=== PATIENT | male | born 1955 | race Caucasian/White ===

== ENCOUNTER 2017-06-25 13:58 | Observation (INO) | payer BC ==
--- NOTE | 2017-06-25 15:48 | ED ---
General Adult HPI - General Chief complaint: Recheck/Abnormal Lab/Rx Stated complaint: kidney problems-sent by Time Seen by Provider: 06/25/17 15:33 Source: patient, RN notes reviewed Mode of arrival: ambulatory Limitations: no limitations - History of Present Illness Initial comments: Patient 62-year-old male significant past medical history for hypertension, diabetes, presenting to the emergency room today with a chief complaint of increased leg swelling over the last 3 weeks. Patient does not that is been following up with family physician. He states that he had blood drawn last week and most recently just the other day and he was told that his kidney function was elevated. He states was advised come here to the emergency room. Patient also admits that over the last few weeks she's noticed that his had a difficult time was bowel movements. He states feels more full more distended. Patient states he is passing gas. Patient does admit to a weight gain 10 pounds over the last 3 weeks. Denies any complaints symptoms. Patient denies any recent fever, chills, shortness of breath, chest pain, back pain, nausea or vomiting, numbness or tingling, dysuria or hematuria, constipation or diarrhea, headaches or visual changes, or any other complaints. - Related Data Home Medications Medication Instructions Recorded Confirmed Bisacodyl [Dulcolax] 5 mg PO DAILY PRN 06/25/17 06/25/17 Exenatide Microspheres [Bydureon 2 mg SQ WE 06/25/17 06/25/17 Pen] Glimepiride [Amaryl] 1 mg PO DAILY 06/25/17 06/25/17 Levothyroxine Sodium [Synthroid] 25 mcg PO DAILY 06/25/17 06/25/17 Lisinopril [Zestril] 5 mg PO DAILY 06/25/17 06/25/17 Allergies Allergy/AdvReac Type Severity Reaction Status Date / Time No Known Allergies Allergy Verified 06/25/17 16:22 Review of Systems ROS Statement: Those systems with pertinent positive or pertinent negative responses have been documented in the HPI. ROS Other: All systems not noted in ROS Statement are negative. Past Medical History Past Medical History: Diabetes Mellitus, Hypertension History of Any Multi-Drug Resistant Organisms: None Reported Past Surgical History: No Surgical Hx Reported Past Psychological History: No Psychological Hx Reported Smoking Status: Never smoker Past Alcohol Use History: Occasional Past Drug Use History: None Reported General Exam - General Exam Comments Initial Comments: General: The patient is awake and alert, in no distress, and does not appear acutely ill. Eye: Pupils are equal, round and reactive to light, extra-ocular movements are intact. No nystagmus. There is normal conjunctiva bilaterally. No signs of icterus. Ears, nose, mouth and throat: There are moist mucous membranes and no oral lesions. Neck: The neck is supple, there is no tenderness or JVD. Cardiovascular: There is a regular rate and rhythm. No murmur, rub or gallop is appreciated. Respiratory: Lungs are clear to auscultation, respirations are non-labored, breath sounds are equal. No wheezes, stridor, rales, or rhonchi. Gastrointestinal: Patient's abdomen maladies. Firm on palpation lower abdomen midline. No rebound tenderness. No guarding. Mild tenderness left lower quadrant. Musculoskeletal: Normal ROM, no tenderness. Strength 5/5. Sensation intact. Pulses equal bilaterally 2+. No pitting edema. Neurological: A&O x 3. CN II-XII intact, There are no obvious motor or sensory deficits. Coordination appears grossly intact. Speech is normal. Skin: Skin is warm and dry and no rashes or lesions are noted. Psychiatric: Cooperative, appropriate mood & affect, normal judgment. Limitations: no limitations Course Vital Signs 06/25/17 06/25/17 06/25/17 14:38 16:07 16:24 Temperature 98.6 F Pulse Rate 68 66 62 Respiratory 20 16 18 Rate Blood Pressure 199/95 195/90 182/90 O2 Sat by Pulse 98 99 Oximetry 06/25/17 16:50 Temperature Pulse Rate 80 Respiratory 16 Rate Blood Pressure 165/91 O2 Sat by Pulse 99 Oximetry Medical Decision Making - Medical Decision Making Patient reexamined at this time shows no signs of distress. Patient resting comfortably currently drinking water. Patient abdomen is soft on palpation. He does have some mild distention. Mild tenderness to the lower quadrants. Patient's x-rays show moderate amount stool no sign of obstruction. He is passing gas. Patient labs been reviewed does show elevation of BUN/creatinine. Creatinine 1.5. Patient started on normal saline here in the emergency room cc per hour. Patient will be admitted to the hospital for acute renal failure further evaluation. Case was discussed with admitting physician Dr. Aranda who will admit the patient with recommends ultrasound of abdomen and echocardiogram. - Lab Data Result diagrams: 06/25/17 16:08 06/25/17 16:08 Lab Results 06/25/17 06/25/17 06/25/17 Range/Units 16:08 16:08 16:08 WBC (3.8-10.6) k/uL RBC (4.30-5.90) m/uL Hgb (13.0-17.5) gm/dL Hct (39.0-53.0) % MCV (80.0-100.0) fL MCH (25.0-35.0) pg MCHC (31.0-37.0) g/dL RDW (11.5-15.5) % Plt Count (150-450) k/uL Neutrophils % % Lymphocytes % % Monocytes % % Eosinophils % % Basophils % % Neutrophils # (1.3-7.7) k/uL Lymphocytes # (1.0-4.8) k/uL Monocytes # (0-1.0) k/uL Eosinophils # (0-0.7) k/uL Basophils # (0-0.2) k/uL PT 9.8 (9.0-12.0) sec INR 1.0 (<1.2) APTT 25.1 (22.0-30.0) sec Sodium 142 (137-145) mmol/L Potassium 4.1 (3.5-5.1) mmol/L Chloride 109 H (98-107) mmol/L Carbon Dioxide 24 (22-30) mmol/L Anion Gap 9 mmol/L BUN 22 H (9-20) mg/dL Creatinine 1.52 H (0.66-1.25) mg/dL Est GFR (CKD-EPI)AfAm 56 (>60 ml/min/1.73 sqM) Est GFR (CKD-EPI)NonAf 48 (>60 ml/min/1.73 sqM) Glucose 113 H (74-99) mg/dL Calcium 9.3 (8.4-10.2) mg/dL Total Bilirubin 0.5 (0.2-1.3) mg/dL AST 21 (17-59) U/L ALT 32 (21-72) U/L Alkaline Phosphatase 86 (38-126) U/L NT-Pro-B Natriuret Pep 209 pg/mL Total Protein 6.6 (6.3-8.2) g/dL Albumin 3.9 (3.5-5.0) g/dL Amylase 57 (30-110) U/L Lipase 156 (23-300) U/L Urine Color Urine Appearance (Clear) Urine pH (5.0-8.0) Ur Specific [place] (1.001-1.035) Urine Protein (Negative) Urine Glucose (UA) (Negative) Urine Ketones (Negative) Urine Blood (Negative) Urine Nitrite (Negative) Urine Bilirubin (Negative) Urine Urobilinogen (<2.0) mg/dL Ur Leukocyte Esterase (Negative) 06/25/17 06/25/17 Range/Units 16:08 16:08 WBC 9.5 (3.8-10.6) k/uL RBC 4.24 L (4.30-5.90) m/uL Hgb 13.2 (13.0-17.5) gm/dL Hct 37.3 L (39.0-53.0) % MCV 88.0 (80.0-100.0) fL MCH 31.1 (25.0-35.0) pg MCHC 35.4 (31.0-37.0) g/dL RDW 13.2 (11.5-15.5) % Plt Count 228 (150-450) k/uL Neutrophils % 73 % Lymphocytes % 15 % Monocytes % 5 % Eosinophils % 6 % Basophils % 0 % Neutrophils # 6.9 (1.3-7.7) k/uL Lymphocytes # 1.4 (1.0-4.8) k/uL Monocytes # 0.5 (0-1.0) k/uL Eosinophils # 0.6 (0-0.7) k/uL Basophils # 0.0 (0-0.2) k/uL PT (9.0-12.0) sec INR (<1.2) APTT (22.0-30.0) sec Sodium (137-145) mmol/L Potassium (3.5-5.1) mmol/L Chloride (98-107) mmol/L Carbon Dioxide (22-30) mmol/L Anion Gap mmol/L BUN (9-20) mg/dL Creatinine (0.66-1.25) mg/dL Est GFR (CKD-EPI)AfAm (>60 ml/min/1.73 sqM) Est GFR (CKD-EPI)NonAf (>60 ml/min/1.73 sqM) Glucose (74-99) mg/dL Calcium (8.4-10.2) mg/dL Total Bilirubin (0.2-1.3) mg/dL AST (17-59) U/L ALT (21-72) U/L Alkaline Phosphatase (38-126) U/L NT-Pro-B Natriuret Pep pg/mL Total Protein (6.3-8.2) g/dL Albumin (3.5-5.0) g/dL Amylase (30-110) U/L Lipase (23-300) U/L Urine Color Colorless Urine Appearance Clear (Clear) Urine pH 6.5 (5.0-8.0) Ur Specific [place] 1.005 (1.001-1.035) Urine Protein Negative (Negative) Urine Glucose (UA) 3+ H (Negative) Urine Ketones Negative (Negative) Urine Blood Negative (Negative) Urine Nitrite Negative (Negative) Urine Bilirubin Negative (Negative) Urine Urobilinogen <2.0 (<2.0) mg/dL Ur Leukocyte Esterase Negative (Negative) Disposition Clinical Impression: Acute renal failure, Abdominal pain Disposition: ADMITTED IP TO THIS [facility] Condition: Stable Referrals: Madhu Porras MD [Primary Care Provider] - 1-2 days Time of Disposition: 16:49
[2017-06-25] MEDS ORDERED: hydrALAZINE HCL 20 MG/ML 1 ML VIAL IVP STA (16:14)
[2017-06-25 16:27] LABS: Basophils % (A) 0 %; Eosinophils # (A) 0.6 k/uL (0-0.7); Eosinophils % (A) 6 %; HCT 37.3 % (39.0-53.0); HGB 13.2 gm/dL (13.0-17.5); Lymphocytes # (A) 1.4 k/uL (1.0-4.8); Lymphocytes % (A) 15 %; MCH 31.1 pg (25.0-35.0); MCHC 35.4 g/dL (31.0-37.0); Mean Platelet Volume 7.6; Monocytes # (A) 0.5 k/uL (0-1.0); Monocytes % (A) 5 %; Neutrophils # (A) 6.9 k/uL (1.3-7.7); Neutrophils % (A) 73 %; Platelet Count 228 k/uL (150-450); RBC 4.24 m/uL (4.30-5.90); RDW 13.2 % (11.5-15.5); WBC 9.5 k/uL (3.8-10.6)
[2017-06-25 16:28] LABS: Appearance,Urine Clear (Clear); Bilirubin,Urine Negative (Negative); Blood,Urine Negative (Negative); Color,Urine Colorless; Glucose,Urine (UA) 3+ (Negative); Ketones,Urine Negative (Negative); Leukocyte Esterase,Urine Negative (Negative); Nitrite,Urine Negative (Negative); PH, Urine 6.5 (5.0-8.0); Protein,Urine Negative (Negative); Specific Gravity,Urine 1.005 (1.001-1.035); Urobilinogen,Urine <2.0 mg/dL (<2.0)
[2017-06-25 16:30] LABS: Albumin 3.9 g/dL (3.5-5.0); Calcium 9.3 mg/dL (8.4-10.2); Potassium 4.1 mmol/L (3.5-5.1); Total Bilirubin 0.5 mg/dL (0.2-1.3); Total Protein 6.6 g/dL (6.3-8.2)
--- NOTE | 2017-06-25 16:30 | XR ---
EXAMINATION TYPE: XR chest 2V DATE OF EXAM: 06/25/2017 CLINICAL HISTORY: Pain TECHNIQUE: Frontal and lateral views of the chest are obtained. COMPARISON: None FINDINGS: There is no focal air space opacity, pleural effusion, or pneumothorax seen. The cardiac silhouette size is within normal limits. The osseous structures are intact. IMPRESSION: No acute cardiopulmonary process.
--- NOTE | 2017-06-25 16:31 | XR ---
EXAMINATION TYPE: XR KUB DATE OF EXAM: 06/25/2017 COMPARISON: NONE HISTORY: Pain TECHNIQUE: Single supine KUB image of the abdomen is obtained FINDINGS: Small bowel demonstrates no evidence for dilatation or air fluid levels. Gas and fecal material is seen in non-distended colon. No convincing evidence for pneumoperitoneum. No unusual calcifications. The lung bases are clear. The osseous structures are intact. IMPRESSION: 1. Overall nonobstructive bowel gas pattern.
[2017-06-25 16:33] LABS: Partial Thromboplastin Time 25.1 sec (22.0-30.0); Prothrombin Time 9.8 sec (9.0-12.0)
[2017-06-25] MEDS ORDERED: SODIUM CHLORIDE 0.9% 1,000 ML IV STA ×2 (16:47→17:00)
[2017-06-25] MEDS ORDERED: HYDROcodone/APAP 5-325MG 1 EACH TAB PO PRN (17:04)
[2017-06-25] MEDS ORDERED: ONDANSETRON 4 MG/2 ML VIAL IVP PRN (17:04)
[2017-06-25] MEDS ORDERED: MORPHINE SULFATE/PF 10MG/10ML VL IV PRN (17:04)
[2017-06-25] MEDS ORDERED: NALOXONE 0.4 MG/ML 1 ML VIAL IV PRN (17:04)
--- NOTE | 2017-06-25 18:48 | US ---
EXAMINATION TYPE: US abdomen comp/pelvis limited DATE OF EXAM: 06/25/2017 COMPARISON: NONE CLINICAL HISTORY: Pain. Pain, bloating and abnormal renal function. EXAM MEASUREMENTS: Liver Length: 15.4 cm Gallbladder Wall: 0.3 cm CBD: 0.3 cm Spleen: 10.4 cm Right Kidney: 11.6 x 5.6 x 5.8 cm Left Kidney: 11.0 x 7.0 x 5.4 cm Post Void Residual: 2177 mL Pancreas: Obscured by bowel gas Liver: wnl Gallbladder: wnl CBD: wnl Spleen: wnl Right Kidney: Hydronephrosis seen. Left Kidney: Hydronephrosis seen. Upper IVC: wnl Abd Aorta: Obscured by overlying bowel gas Bladder: Anechoic unable to empty Bilateral Jets Seen Yes Normal Post Void Residual (normal less than 50ml) No Unable to void post residual 2177ml. Bilateral hydronephrosis visualized. IMPRESSION: There is a very large post void residual bladder volume. Mild bilateral hydronephrosis wi thout significant renal atrophy. No gallstones or dilated ducts. No free fluid.
[2017-06-25 20:26] LABS: Glucose,Whole Blood 88 mg/dL (75-99)
[2017-06-25] MEDS: ACETAMINOPHEN TAB 325 MG TAB PO PRN (21:05)
[2017-06-25] MEDS ORDERED: hydrALAZINE HCL 20 MG/ML 1 ML VIAL IVP PRN (22:32)
[2017-06-25] MEDS ORDERED: TAMSULOSIN 0.4 MG CAP.ER.24H PO STA (22:50)
[2017-06-26] MEDS: LEVOTHYROXINE 25 MCG TAB PO SCH (05:53)
[2017-06-26 07:42] LABS: Glucose,Whole Blood 110 mg/dL (75-99)
[2017-06-26] MEDS: INSULIN ASPART 100 UNIT/ML 1 ML 10 ML VIAL SQ SCH ×4 (07:51→21:30)
[2017-06-26] MEDS: GLIMEPIRIDE 1 MG TAB PO SCH (07:53)
[2017-06-26] MEDS: TAMSULOSIN 0.4 MG CAP.ER.24H PO SCH (07:54)
[2017-06-26 08:21] LABS: Basophils % (A) 0 %; Eosinophils # (A) 0.7 k/uL (0-0.7); Eosinophils % (A) 8 %; HCT 39.4 % (39.0-53.0); HGB 12.6 gm/dL (13.0-17.5); Lymphocytes # (A) 1.8 k/uL (1.0-4.8); Lymphocytes % (A) 20 %; MCH 29.1 pg (25.0-35.0); MCHC 31.8 g/dL (31.0-37.0); MCV 91.3 fL (80.0-100.0); Mean Platelet Volume 8.3; Monocytes # (A) 0.7 k/uL (0-1.0); Monocytes % (A) 8 %; Neutrophils # (A) 5.5 k/uL (1.3-7.7); Neutrophils % (A) 62 %; Platelet Count 196 k/uL (150-450); RBC 4.32 m/uL (4.30-5.90); RDW 13.5 % (11.5-15.5); WBC 8.9 k/uL (3.8-10.6)
[2017-06-26 08:35] LABS: Albumin 3.4 g/dL (3.5-5.0); Calcium 9.4 mg/dL (8.4-10.2); Potassium 3.7 mmol/L (3.5-5.1); Total Bilirubin 0.8 mg/dL (0.2-1.3)
[2017-06-26 11:34] LABS: Glucose,Whole Blood 134 mg/dL (75-99)
[2017-06-26 11:56] LABS: Hemoglobin A1C 7.5 % (4.0-6.0)
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
--- NOTE | 2017-06-26 12:48 | ECHOF ---
Referral Reason:edema MEASUREMENTS -------- HEIGHT: 170.2 cm WEIGHT: 83.0 kg BP: 162/84 RVIDd: 3.4 cm (< 3.3) IVSd: 1.4 cm (0.6 - 1.1) LVIDd: 4.1 cm (3.9 - 5.3) LVPWd: 1.4 cm (0.6 - 1.1) IVSs: 2.1 cm LVIDs: 2.7 cm LVPWs: 2.0 cm LA Diam: 3.3 cm (2.7 - 3.8) LAESV Index (A-L): 35.87 ml/m Ao Diam: 3.6 cm (2.0 - 3.7) AV Cusp: 2.5 cm (1.5 - 2.6) MV EXCURSION: 14.577 mm (> 18.000) MV EF SLOPE: 62 mm/s (70 - 150) EPSS: 1.0 cm MV E Nirav: 0.96 m/s MV DecT: 215 ms MV A Nirav: 0.95 m/s MV E/A Ratio: 1.01 RAP: 5.00 mmHg RVSP: 24.64 mmHg FINDINGS -------- Sinus rhythm. This was a technically good study. The left ventricular size is normal. There is moderate concentric left ventricular hypertrophy. O verall left ventricular systolic function is normal with, an EF between 60 - 65 %. The right ventricle is mildly enlarged. LA is moderately dilated 34-39 ml/m2 The right atrium is normal in size. The aortic valve is trileaflet and appears structurally normal. Trace to mild aortic regurgitation. There is trace mitral regurgitation. Mild tricuspid regurgitation present. Right ventricular systolic pressure is normal at < 35 mmHg. There is no pulmonic regurgitation present. The aortic root size is normal. Normal inferior vena cava with normal inspiratory collapse consistent with estimated right atrial pre ssure of 5 mmHg. There is no pericardial effusion. CONCLUSIONS -------- 1. Sinus rhythm. 2. This was a technically good study. 3. The left ventricular size is normal. 4. There is moderate concentric left ventricular hypertrophy. 5. Overall left ventricular systolic function is normal with, an EF between 60 - 65 %. 6. The right ventricle is mildly enlarged. 7. LA is moderately dilated 34-39 ml/m2 8. The right atrium is normal in size. 9. The aortic valve is trileaflet and appears structurally normal. 10. Trace to mild aortic regurgitation. 11. There is trace mitral regurgitation. 12. Mild tricuspid regurgitation present. 13. Right ventricular systolic pressure is normal at < 35 mmHg. 14. There is no pulmonic regurgitation present. 15. The aortic root size is normal. 16. Normal inferior vena cava with normal inspiratory collapse consistent with estimated right atrial pressure of 5 mmHg. 17. There is no pericardial effusion. [employer] WORKER: Kelin Todd RDCS
[2017-06-26] MEDS ORDERED: MORPHINE ORAL SOLN 10 MG/5 ML CUP PO PRN (15:23)
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
[2017-06-26] MEDS: LISINOPRIL-HCTZ 10-12.5 MG 1 EACH TAB PO SCH (16:36)
[2017-06-26] MEDS: ENOXAPARIN 40 MG/0.4 ML SYRINGE SQ SCH (16:36)
[2017-06-26 17:47] LABS: Glucose,Whole Blood 80 mg/dL (75-99)
--- NOTE | 2017-06-26 19:14 | US ---
EXAMINATION TYPE: US venous doppler duplex LE BI DATE OF EXAM: 06/26/2017 5:33 PM COMPARISON: NONE CLINICAL HISTORY: le edema r/o dvt . Bilateral edema SIDE PERFORMED: Bilateral TECHNIQUE: The lower extremity deep venous system is examined utilizing real time linear array sonog antionette with graded compression, doppler sonography and color-flow sonography. VESSELS IMAGED: External Iliac Vein (EIV) Common Femoral Vein Deep Femoral Vein Greater Saphenous Vein * Femoral Vein Popliteal Vein Small Saphenous Vein * Proximal Calf Veins (* superficial vessels) Right Leg: Negative for DVT Left Leg: Negative for DVT No evidence of DVT of bilateral legs. IMPRESSION: Negative exam. No evidence of deep venous thrombosis in both legs.
[2017-06-26 20:30] LABS: Glucose,Whole Blood 227 mg/dL (75-99)
[2017-06-26] MEDS ORDERED: Exenatide Microspheres [Bydureon Pen] 2 MG SQ SCH (22:00)
[2017-06-27] MEDS: LEVOTHYROXINE 25 MCG TAB PO SCH (06:20)
[2017-06-27 07:23] LABS: Glucose,Whole Blood 123 mg/dL (75-99)
[2017-06-27 08:49] LABS: Basophils % (A) 1 %; Eosinophils # (A) 1.1 k/uL (0-0.7); Eosinophils % (A) 14 %; HCT 37.3 % (39.0-53.0); Lymphocytes % (A) 24 %; MCH 30.7 pg (25.0-35.0); MCHC 34.8 g/dL (31.0-37.0); MCV 88.2 fL (80.0-100.0); Mean Platelet Volume 7.6; Monocytes # (A) 0.5 k/uL (0-1.0); Monocytes % (A) 6 %; Neutrophils # (A) 4.3 k/uL (1.3-7.7); Neutrophils % (A) 53 %; Platelet Count 207 k/uL (150-450); RBC 4.22 m/uL (4.30-5.90); RDW 13.2 % (11.5-15.5); WBC 8.1 k/uL (3.8-10.6)
[2017-06-27] MEDS ORDERED: FAMOTIDINE 20 MG TAB PO SCH (09:00)
[2017-06-27] MEDS: INSULIN ASPART 100 UNIT/ML 1 ML 10 ML VIAL SQ SCH ×3 (09:30→18:21)
[2017-06-27] MEDS: ENOXAPARIN 40 MG/0.4 ML SYRINGE SQ SCH (09:31)
[2017-06-27] MEDS: LISINOPRIL-HCTZ 10-12.5 MG 1 EACH TAB PO SCH (09:31)
[2017-06-27] MEDS: GLIMEPIRIDE 1 MG TAB PO SCH (09:31)
[2017-06-27] MEDS: TAMSULOSIN 0.4 MG CAP.ER.24H PO SCH (09:31)
[2017-06-27] MEDS: ACETAMINOPHEN TAB 325 MG TAB PO PRN (09:38)
[2017-06-27 10:16] LABS: Albumin 3.1 g/dL (3.5-5.0); Calcium 9.3 mg/dL (8.4-10.2); Potassium 3.7 mmol/L (3.5-5.1); Total Bilirubin 0.6 mg/dL (0.2-1.3); Total Protein 5.6 g/dL (6.3-8.2)
[2017-06-27 11:38] LABS: Glucose,Whole Blood 168 mg/dL (75-99)
--- NOTE | 2017-06-27 15:05 | P.DS ---
Providers Date of admission: 06/25/17 17:06 Expected date of discharge: 06/27/17 Attending physician: Ajith Aranda MD Consults: 06/26/17 04:46 Consult Physician Routine Consulting Provider: Bobby Poon Consult Reason/Comments: urinary retention, hematuria Do you want consulting provider notified?: Yes, Notify in am 06/26/17 11:33 Consult Physician Routine Consulting Provider: Franklyn Rangel Consult Reason/Comments: urinary retention Do you want consulting provider notified?: Yes Primary care physician: Madhu Porras [facility] Course: 62 years old male patient of Dr. Porras with past medical history of type 2 diabetes, hypertension, hypothyroidism who presents in with lower extremity edema associated with urinary retention more than 2 litre post void leading to Miner catheter placement. Patient was initially sent by his primary care physician for abnormal labs including a creatinine of 1.5, BUN of 40.Renal ultrasound done in the ED suggestive of bilateral mild hydronephrosis with very large postvoid residual bladder volume. On evaluation patient does admit to frequent urination and nocturnal awekening episodes for urination. Patient does have history of BPH but is currently not on any medication. He denies any cough or shortness of breath, denies abdominal pain, nausea, vomiting, change in bowel habits. Creatinine has improved since yesterday. 1.5-1.3. vital signs suggest with blood pressure 162/84, heart rate 68, respiratory rate of 16 and afebrile to touch. Patient was admitted for a elliquis secondary to obstructive uropathy. BNP is normal with no sign of heart failure on examination. Echo suggestive of moderate concentric hypertrophy with no valvular or wall abnormality. 06/27: Patient has been seen by Dr. hays with plan for follow-up with Dr. Barry. Miner catheter to remain in place. Patient has had good urine output. Ultrasound of the lower extremities negative for DVT bilaterally. Patient is known to have less lower extremity edema. He denies any chest pain or shortness of breath. Echocardiogram reveals EF of 60-65% with moderate concentric left ventricular hypertrophy, LA moderately dilated and 34-39, mild aortic regurgitation, trace mitral regurgitation, mild tricuspid regurgitation. Repeat BUN 15 creatinine 1.19. Blood blood glucose running between 123 and 227. White count is normal. Hemoglobin is at 13. Patient will be discharged home today in stable condition. Discharge diagnoses: 1. Acute kidney injury likely secondary to obstructive uropathy. 2. Lower extremity edema. 3. Hypertension and hypertensive cardiovascular disease. 4. Type 2 diabetes 5. BPH 6. Hypothyroidism Discharge plan: Home Impression and plan of care have been directed as dictated by the signing physician. Brianne Bueno nurse practitioner acting as scribe for signing physician. Patient Condition at Discharge: Good Plan - Discharge Summary Discharge Rx Participant: Yes New Discharge Prescriptions: New Lisinopril-Hctz 10-12.5 mg [Zestoretic 10-12.5] 1 each PO DAILY #30 tab Tamsulosin [Flomax] 0.4 mg PO PC-BRKFST #30 cap.er.24h Continue Exenatide Microspheres [Bydureon Pen] 2 mg SQ WE Bisacodyl [Dulcolax] 5 mg PO DAILY PRN PRN Reason: Constipation Levothyroxine Sodium [Synthroid] 25 mcg PO DAILY Glimepiride [Amaryl] 1 mg PO DAILY Discontinued Lisinopril [Zestril] 5 mg PO DAILY Discharge Medication List Bisacodyl [Dulcolax] 5 mg PO DAILY PRN 06/25/17 [History] Exenatide Microspheres [Bydureon Pen] 2 mg SQ WE 06/25/17 [History] Glimepiride [Amaryl] 1 mg PO DAILY 06/25/17 [History] Levothyroxine Sodium [Synthroid] 25 mcg PO DAILY 06/25/17 [History] Lisinopril-Hctz 10-12.5 mg [Zestoretic 10-12.5] 1 each PO DAILY #30 tab [Rx] Tamsulosin [Flomax] 0.4 mg PO PC-BRKFST #30 cap.er.24h 06/27/17 [Rx] Follow up Appointment(s)/Referral(s): Franklyn Rangel MD [STAFF PHYSICIAN] - 1 Week (Office will call patient to schedule appt) Madhu Porras MD [Primary Care Provider] - 07/09/17 10:45 am Activity/Diet/Wound Care/Special Instructions: Keep miner in place. Discharge Disposition: HOME SELF-CARE
[2017-06-27 17:22] VITALS: BP 158/89; PULSE 66; RESP 18; TEMP 97.4
--- NOTE | 2017-06-27 18:48 | P.PN ---
Progress Note - Text Progress Note Date: 06/27/17 Mr. Amin was seen this morning. His serum creatinine level is normal today. The Bowman catheters draining clear yellow urine. I explained to him that 2100 mL of urine was drained from his bladder, and that this suggests a chronic condition of incomplete bladder emptying. As a result, his bladder may lack the bladder tone necessary for normal micturition. He is to be discharged home with the Bowman catheter, and arrangements will be made for him to undergo a cystometrogram in the office in 2 weeks. Alternatively, he was advised that he could perform intermittent self-catheterization if he prefers this to an indwelling Bowman catheter.
== END 2017-06-27 18:55 | disposition home or self-care (01) ==
LOC: EC 13:58 → 5MS5E 17:06
PROVIDERS: ADMIT Internal Medicine; ATTEND Internal Medicine
DX: N17.9 Acute kidney failure, unspecified (principal); N13.30 Unspecified hydronephrosis; N40.1 Benign prostatic hyperplasia with lower urinary tract symptoms; R33.8 Other retention of urine; I11.9 Hypertensive heart disease without heart failure; E11.9 Type 2 diabetes mellitus without complications; K59.00 Constipation, unspecified; R60.0 Localized edema; E03.9 Hypothyroidism, unspecified; E66.9 Obesity, unspecified; Z68.28 Body mass index [BMI] 28.0-28.9, adult; Z79.84 Long term (current) use of oral hypoglycemic drugs; Z79.899 Other long term (current) drug therapy; Z86.79 Personal history of other diseases of the circulatory system; Z82.49 Family history of ischemic heart disease and other diseases of the circulatory system
CPT/HCPCS: 99285 ×2; 96374 ×2; 96361 ×2; 51702 ×2; 96372 ×2; 36415; 93306; 83880; 80053 ×3; 82150; 83690; 85025 ×3; 85610; 85730; 81003; 87086; 83036; 71046; 74018; 76700; 76857; 93970; G0378 ×3; J0360; J1650 ×2

== ENCOUNTER → 2017-09-12 | Outpatient (CLI) | payer BC ==
[2017-09-12 17:17] LABS: Anion Gap 11 mmol/L; Blood Urea Nitrogen 16 mg/dL (9-20); Calcium 9.7 mg/dL (8.4-10.2); Carbon Dioxide 27 mmol/L (22-30); Chloride 104 mmol/L (98-107); Glucose 111 mg/dL (74-99); Potassium 4.3 mmol/L (3.5-5.1); Sodium 142 mmol/L (137-145)
[2017-09-12 17:28] LABS: Basophils % (A) 0 %; Eosinophils # (A) 0.3 k/uL (0-0.7); Eosinophils % (A) 3 %; HCT 38.3 % (39.0-53.0); HGB 12.9 gm/dL (13.0-17.5); Lymphocytes # (A) 2.4 k/uL (1.0-4.8); Lymphocytes % (A) 23 %; MCH 30.7 pg (25.0-35.0); MCHC 33.7 g/dL (31.0-37.0); Mean Platelet Volume 6.4; Monocytes # (A) 0.6 k/uL (0-1.0); Monocytes % (A) 6 %; Neutrophils # (A) 6.8 k/uL (1.3-7.7); Neutrophils % (A) 65 %; Platelet Count 375 k/uL (150-450); RBC 4.21 m/uL (4.30-5.90); RDW 13.6 % (11.5-15.5); WBC 10.4 k/uL (3.8-10.6)
== END | disposition home or self-care (01) ==
LOC: LABPAT 16:42
PROVIDERS: ATTEND Urology
DX: Z01.818 Encounter for other preprocedural examination (principal); N40.1 Benign prostatic hyperplasia with lower urinary tract symptoms; R33.9 Retention of urine, unspecified; E03.9 Hypothyroidism, unspecified; E11.9 Type 2 diabetes mellitus without complications; R35.0 Frequency of micturition; I10 Essential (primary) hypertension; Z01.812 Encounter for preprocedural laboratory examination
CPT/HCPCS: 36415; 80048; 85025; 87077; 87086; 87186; 93005

== ENCOUNTER 2017-09-19 09:50 | Day surgery (SDC) | payer BC ==
[~2017-09-19 09:50] MED LIST: DEXAMETHASONE SOD PHOSPHATE 10 MG/ML 1 ML VIAL IV ONE; HYDROmorphone 0.5 MG/0.5 ML SYRINGE IVP PRN; ONDANSETRON 4 MG/2 ML VIAL IVP ONE
[2017-09-19] MEDS: LACTATED RINGERS 1,000 ML IV SCH (11:48)
[2017-09-19 11:49] LABS: Glucose,Whole Blood 106 mg/dL (75-99)
[2017-09-19] MEDS ORDERED: LIDOCAINE 1% 20 ML VIAL (10MG/ML) FOR IV START INTRADERMA ONE (11:51)
[2017-09-19] MEDS ORDERED: fentaNYL (PF) 50 MCG/ML 2 ML AMP ONE (12:41)
[2017-09-19] MEDS ORDERED: diphenhydrAMINE 50 MG/ML 1 ML VIAL ONE (12:41)
[2017-09-19] MEDS ORDERED: MIDAZOLAM 2 MG/2 ML VIAL ONE (12:41)
[2017-09-19] MEDS ORDERED: MORPHINE SULFATE 2 MG/ML SYRINGE IVP PRN (15:01)
[2017-09-19] MEDS ORDERED: diphenhydrAMINE 50 MG/ML 1 ML VIAL IVP PRN (15:01)
[2017-09-19] MEDS ORDERED: NALBUPHINE 10 MG/ML VIAL (10ML MDV) IV PRN (15:01)
[2017-09-19] MEDS ORDERED: NALOXONE 0.4 MG/ML 1 ML VIAL IV PRN (15:01)
[2017-09-19] MEDS ORDERED: LACTATED RINGERS 1,000 ML IV ONE ×2 (15:13)
[2017-09-19] MEDS ORDERED: SODIUM CHLORIDE 0.9% IRRIG 3,000 ML BAG IRRIGATION ONE (16:20)
[2017-09-19 16:37] LABS: Glucose,Whole Blood 108 mg/dL (75-99)
[2017-09-19] MEDS ORDERED: BISACODYL 5 MG TABLET.DR PO PRN (16:38)
--- NOTE | 2017-09-19 16:38 | P.OP ---
Date of Procedure: 09/19/17 Preoperative Diagnosis: Urinary Retention Secondary to BPH Postoperative Diagnosis: Same Procedure(s) Performed: Cystoscopy, Bipolar Transurethral Resection of Prostate (TURP) Anesthesia: spinal Surgeon: Franklyn Rangel Estimated Blood Loss (ml): 100 IV fluids (ml): 1,050 Pathology: other (Prostate chips) Condition: stable Disposition: PACU Indications for Procedure: He is a 62-year-old male with no family history of prostate cancer. His PSA level in 2013 was 6.030. YASMEEN revealed the prostate to be moderately enlarged, with left-sided asymmetrical enlargement. There is no nodularity. He underwent a prostate ultrasound and biopsies, revealing a prostate volume of 59 cc. Biopsies were negative, but a Confirm MDX study was positive. He failed to follow up, and was recently admitted with urinary retention (2175 cc). CMG suggests normal bladder tone, and he was advised that a TURP offers him the best chance restore the ability to void. Repeat biopsies showed no evidence of malignancy and he will thus undergo a TURP. However, he understands that the retention may persist. Operative Findings: Complete obstruction, bilobar configuration. Description of Procedure: The patient was taken in the operating room and placed in the dorsolithotomy position after being given a spinal anesthetic, The external genitalia was prepped and draped sterilely. The 25-[place]uvian ACMI resectoscope sheath was introduced into the bladder. The bladder was inspected. Both ureteral orifices were of normal anatomic location and configuration, and clear urine effluxed from both. No tumors or foreign bodies were seen. Examination of the prostate revealed complete obstruction with a bilobar configuration. The prostate was considerably elongated. Using the bipolar cutting loop, the lateral lobes were resected down to the surgical capsule. On the right side, the tissue was "mushy" with considerable drainage of white, pasty material. The floor of the prostate was then resected, proximal to the verumontanum. Lastly, any remaining anterior tissue was resected. The prostatic fossa was then carefully examined. The remaining apical tissue was then carefully resected. The resection was carried down to the surgical capsule in all 4 quadrants. The prostatic fossa was then carefully examined, and any areas of bleeding were controlled with electrocautery. Excellent hemostasis was attained. The resectoscope was withdrawn into the bulbous urethra. The external urinary sphincter remained intact. The prostatic fossa was open. The [employer] evacuator was used to remove all prostate chips from the bladder. These were saved and sent for pathologic examination. The resectoscope was removed, and a 22 [place]uvian, 3-Way Bowman catheter was placed. The return was essentially clear. Continuous bladder irrigation was started using 0.9 normal saline. The patient tolerated the procedure well was taken to the recovery room in stable condition.
[2017-09-19] MEDS ORDERED: ACETAMINOPHEN TAB 325 MG TAB PO PRN (16:39)
[2017-09-19] MEDS ORDERED: MAG HYDROX/AL HYDROX/SIMETH 30 ML CUP PO PRN (16:39)
[2017-09-19] MEDS ORDERED: BELLADONNA-OPIUM 16.2-60 MG 1 EACH SUPP RECTAL PRN (16:39)
[2017-09-19 16:40] VITALS: RESP 16
[2017-09-19] MEDS ORDERED: HYDROcodone/APAP 5-325MG 1 EACH TAB PO PRN ×2 (16:41)
[2017-09-19] MEDS ORDERED: HYDROmorphone 0.5 MG/0.5 ML SYRINGE IVP PRN (16:41)
[2017-09-19] MEDS ORDERED: DEXTROSE 5%-0.45% NACL 1,000 ML IV SCH (16:45)
[2017-09-19] MEDS ORDERED: SODIUM CHLORIDE 0.9% IRRIG 3,000 ML BAG IRRIGATION SCH (17:00)
[2017-09-19] MEDS: SODIUM CHLORIDE 0.45% 1,000 ML IV SCH (20:30)
[2017-09-19] MEDS: DOCUSATE 100 MG CAP PO SCH (20:55)
[2017-09-19] MEDS: CIPROFLOXACIN HCL 250 MG TAB PO SCH (20:55)
[2017-09-19] MEDS: metFORMIN 500 MG TAB PO SCH (20:55)
[2017-09-19 21:24] LABS: Glucose,Whole Blood 160 mg/dL (75-99)
[2017-09-20] MEDS: LACTATED RINGERS 1,000 ML IV SCH (03:15)
[2017-09-20] MEDS ORDERED: GENTAMICIN 120 MG in SODIUM CHLORIDE 0.9% 100 ML IVPB ONE (06:00)
[2017-09-20] MEDS ORDERED: ceFAZolin IN SWFI 2 GM/20 ML SYRINGE IVP ONE (06:00)
[2017-09-20] MEDS ORDERED: LEVOTHYROXINE 25 MCG TAB PO SCH (06:30)
[2017-09-20 07:57] VITALS: BP 109/72; PULSE 62; TEMP 98.2
[2017-09-20] MEDS ORDERED: LISINOPRIL 10 MG TAB PO SCH (09:00)
[2017-09-20] MEDS ORDERED: GLIMEPIRIDE 1 MG TAB PO SCH (09:00)
[2017-09-20] MEDS: DOCUSATE 100 MG CAP PO SCH (09:04)
[2017-09-20] MEDS: metFORMIN 500 MG TAB PO SCH (09:04)
[2017-09-20] MEDS: CIPROFLOXACIN HCL 250 MG TAB PO SCH (10:25)
[2017-09-20] MEDS: SODIUM CHLORIDE 0.45% 1,000 ML IV SCH (10:59)
--- NOTE | 2017-09-20 12:27 | P.DS ---
Providers Expected date of discharge: 09/20/17 Attending physician: Franklyn Rangel Primary care physician: Madhu Reyes [facility] Course: On the day of admission, the patient underwent an uncomplicated TURP. The perioperative course was unremarkable. He remained afebrile with stable vital signs. On the first postoperative day, he was comfortable and had no complaints. Continuous bladder irrigation was discontinued, and the urine remained clear. He was thus discharged home with the Bowman catheter. Procedures: Cystoscopy, bipolar TURP on 09/19/2017. Patient Condition at Discharge: Good Plan - Discharge Summary Discharge Rx Participant: Yes New Discharge Prescriptions: No Action Exenatide Microspheres [Bydureon Pen] 2 mg SQ WE Bisacodyl [Dulcolax] 5 mg PO DAILY PRN PRN Reason: Constipation Levothyroxine Sodium [Synthroid] 25 mcg PO QAM Glimepiride [Amaryl] 1 mg PO QAM metFORMIN HCL 1,000 mg PO BID Ibuprofen 200 - 400 mg PO Q6H PRN PRN Reason: Pain Lisinopril [Zestril] 10 mg PO DAILY Ciprofloxacin HCl [Cipro] 250 mg PO Q12HR Discharge Medication List Bisacodyl [Dulcolax] 5 mg PO DAILY PRN 06/25/17 [History] Exenatide Microspheres [Bydureon Pen] 2 mg SQ WE 06/25/17 [History] Glimepiride [Amaryl] 1 mg PO QAM 06/25/17 [History] Levothyroxine Sodium [Synthroid] 25 mcg PO QAM 06/25/17 [History] Ibuprofen 200 - 400 mg PO Q6H PRN 09/12/17 [History] metFORMIN HCL 1,000 mg PO BID 09/12/17 [History] Ciprofloxacin HCl [Cipro] 250 mg PO Q12HR 09/13/17 [History] Lisinopril [Zestril] 10 mg PO DAILY 09/13/17 [History] Follow up Appointment(s)/Referral(s): Franklyn Rangel MD [STAFF PHYSICIAN] - 09/23/17 8:00 am Activity/Diet/Wound Care/Special Instructions: Discharge home with Bowman catheter. Encourage oral fluids. No strenuous activity. Hold ibuprofen. Continue antibiotics until completed. Discharge Disposition: HOME SELF-CARE
--- NOTE | 2017-09-20 12:55 | P.PN ---
Progress Note - Text Date: 09/20/2017 Time: 07:12 The patient is status post, TURP. Vital signs stable VAS: 0-10 Patient has no complaints of pain. The patient incurred some minimal itching yesterday, this itching is now subsiding. Pain meds to be managed by service.
[2017-09-25] MEDS ORDERED: NON-FORMULARY DRUG (Exenatide Microspheres [Bydureon Pen] 2 MG) SQ SCH (16:38)
== END 2017-09-20 13:53 | disposition home or self-care (01) ==
LOC: OR 09:50 → 3SUR 16:20 → OR 09-20 13:53
PROVIDERS: ATTEND Urology
DX: N41.1 Chronic prostatitis (principal); N40.1 Benign prostatic hyperplasia with lower urinary tract symptoms; R33.8 Other retention of urine; N13.8 Other obstructive and reflux uropathy; I10 Essential (primary) hypertension; E11.9 Type 2 diabetes mellitus without complications; Z79.84 Long term (current) use of oral hypoglycemic drugs; E03.9 Hypothyroidism, unspecified; K59.00 Constipation, unspecified; Z79.890 Hormone replacement therapy; Z79.899 Other long term (current) drug therapy
CPT/HCPCS: 88305; 52601; J2250; J1200; J1100; J2405; J3010; J1580; J0690